=== PATIENT | male | born 1965 | race Caucasian/White ===

== ENCOUNTER 2021-02-28 07:36 | Outpatient (REF) | payer MEDICAID, SELFPAY ==
[2021-02-28 10:56] LABS: Alanine Aminotransferase 28 U/L (0-40); Albumin Level 3.9 g/dL (3.5-5.0); Alkaline Phosphatase 108 U/L (39-117); Anion Gap 14 (12-20); Aspartate Amino Transferase 24 U/L (5-37); Bilirubin Total 0.3 mg/dL (0.0-1.0); Blood Urea Nitrogen 16 mg/dL (9-16); Calcium 8.9 mg/dL (8.4-10.2); Carbon Dioxide 26 mmol/L (22-29); Chloride 102 mmol/L (96-108); Cholesterol 213 mg/dL; Estimated Glomerular Filt Rate > 60; Glucose Fasting 100 mg/dL (60-99); HDL Cholesterol 47 mg/dL; LDL Cholesterol Calculated 143 mg/dl; Potassium 4.7 mmol/L (3.3-5.1); Sodium 137 mmol/L (135-145); Total Protein 7.3 g/dL (6.5-8.0); Triglycerides 115 mg/dL
[2021-03-04 10:47] LABS: Testosterone, Total 485 ng/dL (250-1100)
== END 2021-02-28 07:37 | disposition home or self-care (01) ==
LOC: HO.10HDL 07:36
PROVIDERS: Visit Provider Internal Medicine
DX: E78.00 Pure hypercholesterolemia, unspecified (principal); I10 Essential (primary) hypertension; R53.83 Other fatigue
CPT/HCPCS: 36415; 80053; 80061; 84403

== ENCOUNTER 2021-11-12 14:16 | Outpatient (REF) | payer MEDICAID, SELFPAY ==
--- NOTE | ~2021-11-12 | XR_ITS ---
EXAMINATION: RIGHT CLAVICLE AND RIGHT SHOULDER. CLINICAL INFORMATION: Pain. COMPARISON: None TECHNIQUE: 2 views right clavicle and 4 views right shoulder. FINDINGS: Right clavicle: There is no visible fracture or bony abnormality. The soft tissues are normal. Right shoulder: There is mild reduction in the glenohumeral joint space with inferior glenoid spurring. No visible acute fracture or dislocation seen. The soft tissues are normal. XR/XR shoulder RT min 2V IMPRESSION: Unremarkable right shoulder exam. Unremarkable right clavicle.
--- NOTE | ~2021-11-12 | XR_ITS ---
EXAMINATION: RIGHT CLAVICLE AND RIGHT SHOULDER. CLINICAL INFORMATION: Pain. COMPARISON: None TECHNIQUE: 2 views right clavicle and 4 views right shoulder. FINDINGS: Right clavicle: There is no visible fracture or bony abnormality. The soft tissues are normal. Right shoulder: There is mild reduction in the glenohumeral joint space with inferior glenoid spurring. No visible acute fracture or dislocation seen. The soft tissues are normal. XR/XR clavicle RT IMPRESSION: Unremarkable right shoulder exam. Unremarkable right clavicle.
== END 2021-11-12 14:17 | disposition home or self-care (01) ==
LOC: HO.XRAY 14:16
PROVIDERS: PCP Internal Medicine; Visit Provider Internal Medicine
DX: M54.2 Cervicalgia (principal); M25.511 Pain in right shoulder
CPT/HCPCS: 73000; 73030

== ENCOUNTER 2024-11-13 11:05 | Emergency (ER) | payer MEDICAID, SELFPAY ==
--- NOTE | ~2024-11-13 | XR_ITS ---
CLINICAL HISTORY: fall, pain, unable bear weight 4 view left knee Comparison: None provided Findings: No fractures or dislocations. No significant arthritic change or erosions. No joint effusion. No radiopaque foreign body. IMPRESSION: 1. No acute findings. This document has been electronically signed by: Torey Girard MD on 11/13/2024 11:50:52
[2024-11-13 11:11] VITALS: BP 138/84; PULSE 68; RESP 19; TEMP 36.6; O2SAT 98; BMI 28.8
--- NOTE | 2024-11-13 11:11 | ED_ITS ---
HPI - Extremity Injury (Lower) General Chief Complaint: Extremity Injury, Lower Stated Complaint: Fall yesterday, Left knee injury Time Seen by Provider: 11/13/24 12:00 Source: patient Mode of arrival: wheelchair Limitations: no limitations History of Present Illness ED Provider: barby holguin np HPI Narrative: Patient is a 58 year male who presents emergency department for evaluation, reports that he fell off a skateboard yesterday sustained a twisting injury to the left knee with the resultant pain, inability to weightbear. Denies numbness tingling cold sensation to the extremity. Denies known prior injury to this extremity. Related Data Allergies Allergy/AdvReac Type Severity Reaction Status Date / Time No Known Allergies Allergy Verified 11/13/24 11:12 Review of Systems Review of Systems: Yes all other systems are reviewed and are negative [facility] Past Medical History Attestation statement: The following information was validated with the patient. Source: old records reviewed Social History Social History Advance Directives: No Advance Directives Information Provided: Yes Do you have a plan to hurt others: No Plan Physical Exam Vital Signs: Vital Signs: Last Vital Signs Temp 98 F 11/13/24 11:11 Pulse 68 11/13/24 11:11 Resp 19 11/13/24 11:11 BP 138/84 11/13/24 11:11 Pulse Ox 98 11/13/24 11:11 O2 Del Method Room Air 11/13/24 11:11 BMI result Body Mass Index 28.8 Appearance: Alert.?Oriented to person, place and time. No acute distress.?Normal affect. Eyes: Pupils equal, round and reactive to light.? ENT: Pharynx normal.?? Neck: Normal inspection.? Neck supple.?? CVS: Heart sounds normal. Normal heart rate and rhythm.? Pulses normal.?? Respiratory: No respiratory distress.? Lung sounds clear to auscultation bilaterally?? Abdomen: Soft and non-tender. Normoactive bowel sounds. Skin: Skin warm and dry.? Normal skin color.? Extremities: No lower extremity edema.? No calf ttp.? No joint effusion. No crepitus. Anterior and posterior drawer test negative. Valgus and varus stress test positive. 2+ DP/PT pulse. No obvious deformities Neuro: Moves all extremities spontaneously. Sensation intact bilaterally. . Ambulates with antalgic gait. Medical Decision Making Medical Decision Making [facility] Narrative: Patient is a 58-year-old male with past medical history of hypertension hypercholesterolemia presenting for evaluation of a left knee injury as per HPI. Had twisting injury from skateboard. Pain localized to the medial and lateral knee, Valgus and varus stress test are positive on examination, concern for potential ligamentous injury, meniscus tear. Lower suspicion for acute fracture/dislocation on physical examination, XR over was obtained, I do not appreciate any bone fragments that might favor an avulsion fracture. No effusio n. Quadriceps tendon is intact. No proximal tibial tenderness. Extremity is neurovascularly intact distally. He has been in the knee immobilizer and provided with crutches, recommendation for conservative treatment and outpatient follow-up with orthopedics. All questions answered. Stable for discharge Differential Diagnosis Differential Diagnoses: The differential diagnosis associated with the presentation includes (See narrative above) Independent Interpretation I performed an independent interpretation of an: Plain X-Ray (See narrative above) Radiology Impression Discussion of test interpretation with radiology: I have reviewed the radiologist's reading. Radiologist Impression: 4 view left knee Comparison: None provided Findings: No fractures or dislocations. No significant arthritic change or erosions. No joint effusion. No radiopaque foreign body. IMPRESSION: 1. No acute findings. Independent Historian Clinical information obtained from an independent historian. History obtained from or confirmed by: Spouse External Record Review External record reviewed: Outpatient record Prescription Management I considered prescription management with: Pain Medication Discharge Plan Discharge Clinical Impression: Internal derangement of knee Qualifiers: Laterality: left Qualified Code(s): M23.92 - Unspecified internal derangement of left knee Patient Disposition: Home, Self-Care Instructions: P.R.I.C.E. Treatment (ED), Knee Sprain (ED), Knee Immobilizer (ED), Crutch Instructions (ED) Additional Instructions: You can take ibuprofen 200 mg, 3 tablets (600mg) every 6-8 hours as needed for pain, in addition to Tylenol 500 mg, 2 tablets (1,000mg) every 4-6 hours as needed for pain, but not to exceed 3 doses daily (3,000mg).? Apply ice for 10-15 minutes 4-6 times daily. Use the knee immobilizer at all times in addition to the crutches, nonweightbearing until seen by orthopedics. Elevate the leg above the level of your chest. Contact the orthopedic office 1st thing tomorrow morning to arrange for an outpatient follow-up visit. Referrals: Mary Thornton MD [Primary Care Provider, Internal Medicine] [facility] [place] [facility] [Provider Group] Stand Alone Forms: Work/School Release Print Language: Nepalese
[2024-11-13 12:33] VITALS: BP 138/84; PULSE 68; RESP 19; TEMP 36.6; O2SAT 98
== END 2024-11-13 12:33 | disposition home or self-care (01) ==
PROVIDERS: Emergency Provider Emergency Medicine; PCP Internal Medicine
DX: M23.92 Unspecified internal derangement of left knee (principal); M25.562 Pain in left knee
CPT/HCPCS: 73564; 99282; 99283

== ENCOUNTER → 2024-11-13 11:12 | Outpatient (BNV) | payer MEDICAID, SELFPAY | PROVIDERS: Emergency Provider Emergency Medicine; PCP Internal Medicine; Visit Provider Radiology Diagnostic Radiology | DX: M25.562 Pain in left knee (principal) | CPT/HCPCS: 73564 ==

== ENCOUNTER 2024-12-07 09:54 | Outpatient (REF) | payer MEDICAID, SELFPAY ==
--- NOTE | ~2024-12-07 | XR_ITS ---
EXAMINATION: XR KNEE, LEFT CLINICAL INFORMATION: M25.562 - Pain in left knee COMPARISON: 11/13/2024. TECHNIQUE: AP view bilateral knees standing, lateral and patellofemoral views left knee. FINDINGS: Right Knee: No fracture, or focal bony abnormality. Normal alignment. Very mild medial compartment joint space narrowing. Normal soft tissues. Left Knee: No fracture, dislocation, or suspicious bone lesion. A very mild medial compartment joint space narrowing. Joint spaces otherwise preserved. Normal knee and patellar alignment. No evidence of joint effusion. Normal soft tissues. XR/XR knee LT 2V IMPRESSION: 1. No acute bony abnormalities of the left knee. No significant joint effusion. 2. Very mild bilateral knee medial compartment joint space narrowing. Electronically signed by: Grayson Hu MD 12/07/2024 12:17 PM EDT
== END 2024-12-07 09:55 | disposition home or self-care (01) ==
LOC: HO.HOSX 09:54
PROVIDERS: Visit Provider Physician Assistant
DX: S83.512A Sprain of anterior cruciate ligament of left knee, initial encounter (principal); X50.1XXA Overexertion from prolonged static or awkward postures, initial encounter; Y93.51 Activity, roller skating (inline) and skateboarding
CPT/HCPCS: 73560; 99212

== ENCOUNTER 2024-12-07 11:47 | Outpatient (AMB) | payer MEDICAID, SELFPAY ==
--- NOTE | 2024-12-07 12:00 | MHC.OFFVIS ---
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 Per ED note from 11/13/24 patient a fall from skateboard resulting in a twisting injury to the left knee with the resultant pain, inability to weight bear. [place] [facility] Today patient reports on and off pain, sometimes gives out throbbing pain.lateral medial and posterior aspect of knee. especially going down stairs. Hx of cortisone injection 2 years ago. Out of work since injury. He has been out of work since his injury. 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 He states he was fixing his daughter skateboard when he went to try it out and he fell and as he landed he twisted the knee. He states there was some immediate discomfort with weight-bearing along with swelling. Since the date of injury he has had ongoing instability in the knee where if he applies weight or goes up and downstairs he feels unstable. He is an active individual who plays sports, goes to the gym and would like to maintain his level of activity. [facility] Surgical History (Updated 12/07/24 @ 12:05 by BRIAN Aleman) History of back surgery Social History (Updated 12/07/24 @ 12:06 by BRIAN Aleman) Patient Tobacco Use Status: Never used Tobacco Current occupational status: employed Current occupation: [employer] Review of Systems Const All systems reviewed & are unremarkable except as noted in HPI and below Physical Exam Vital Signs: BMI result Body Mass Index 28.8 Const General: cooperative and no acute distress Orientation/consciousness: patient oriented x3 Resp Effort & Inspection: normal respiratory effort and able to speak in complete sentences Cardio Peripheral pulses: Peripheral pulses 2+ throughout Neuro General: patient oriented x3 Extrem Other: Left knee is normal to inspection with no joint effusion present he has full range of motion. Mild tenderness over the medial joint line. No pain with pivot shift. Slight laxity with anterior drawer when compared to contralateral side. Results Reviewed Results Reviewed: Assessment & Plan Assessment & Plan (1) Complete tear of anterior cruciate ligament of left knee: Code(s): S83.512A - Sprain of anterior cruciate ligament of left knee, initial encounter Category: Medical Plan: I explained to the patient the extent of his injury given his age often these are typically not repaired as patients are more sedentary however given his lifestyle and activity level he may benefit from an ACL reconstruction however in the setting of arthritis this can complicate things. While he does have some mild arthritis his primary concern is the instability and limitations in daily activities from his injury. I will discuss the case further with Dr. Watkins to decide the next step in his treatment. The patient does express understanding and will return for follow-up as planned. Orders: Orders XR knee LT 2V Today M25.562 - Pain in left knee Coding Level of Care Code New Pt Level 3 (07980) Complex EM visit Add On G2211 Diagnoses Complete tear of anterior cruciate ligament of left knee S83.512A
[2024-12-07 12:07] VITALS: BMI 28.8
== END 2024-12-07 13:12 | disposition home or self-care (01) ==
LOC: HO.HOS 11:47
PROVIDERS: PCP Internal Medicine; Visit Provider Physician Assistant
DX: S83.512A Sprain of anterior cruciate ligament of left knee, initial encounter (principal)
CPT/HCPCS: 99203

== ENCOUNTER → 2024-12-07 11:48 | Outpatient (BNV) | payer MEDICAID, SELFPAY | PROVIDERS: Visit Provider Radiology Diagnostic Radiology | DX: M17.12 Unilateral primary osteoarthritis, left knee (principal) | CPT/HCPCS: 73560 ==

== ENCOUNTER 2024-12-08 12:57 | Outpatient (AMB) | payer MEDICAID, SELFPAY ==
--- NOTE | 2024-12-08 13:10 | MHC.OFFVIS ---
Vital Signs 12/08/24 13:12 Height 5 ft 9 in Weight 195 lb BMI 28.8 Intake Visit Reasons: OV- discuss ACL tear Intake Note: Carlo is a 58 year old man who presents today to discuss his options status post right knee injury, DOI: 11/12/24. Allergies No Known Allergies Allergy (Verified 12/08/24 13:11) Medication List - Last Reconciled 12/08/24 by Nikunj Wagner PA-C lisinopril-hydrochlorothiazide 20-25 mg 1 tab PO DAILY rosuvastatin 40 mg PO DAILY HPI HPI OV- discuss ACL tear: Details: 58-year-old gentleman returns to the office today for left knee ACL tear to discuss surgical intervention. Patient continues to have instability in the knee and limitations with daily activities. [facility] Surgical History History of back surgery Social History Patient Tobacco Use Status: Never used Tobacco Current occupational status: employed Current occupation: [employer] Review of Systems Const All systems reviewed & are unremarkable except as noted in HPI and below Physical Exam Vital Signs: BMI result Body Mass Index 28.8 Const General: cooperative and no acute distress Orientation/consciousness: patient oriented x3 Resp Effort & Inspection: normal respiratory effort and able to speak in complete sentences Cardio Peripheral pulses: Peripheral pulses 2+ throughout Neuro General: patient oriented x3 Extrem Other: Left knee is normal to inspection with no joint effusion present he has full range of motion. Mild tenderness over the medial joint line. No pain with pivot shift. Slight laxity with anterior drawer when compared to contralateral side. Assessment & Plan Assessment & Plan (1) Complete tear of anterior cruciate ligament of left knee: Code(s): S83.512A - Sprain of anterior cruciate ligament of left knee, initial encounter Category: Medical Plan: We discussed the extent of his injury which would benefit from surgical intervention for optimal functioning. The patient does understand nonsurgical intervention would result in significantly limited function. Given the patient's activity level and desire to continue this, it would be recommended to pursue surgical intervention. We discussed the procedure in detail along with the risks benefits and alternatives. Risks including but not limited to infection, injury to surrounding nerves and tissue and bone, small and large vessels, stiffness,need for further surgery, DVT/PE along with intraoperative complications including but not limited to . We discussed postoperative recovery which includes a brace for 6 weeks, followed by PT for up to 3-6 months post op. We also explained being cautious with activities for up to 9-12 months to prevent risk of re-rupture. The patient does express understanding we would like to proceed with left knee acl reconstruction with autograft with Dr. Watkins. The patient was fit for an acl brace in the office today which he took home so he can attend PT with it and they can show him how to use the brace post op. PT order was placed for 1-2 visits of Prehab . All questions answered and the patient will be booked accordingly. Orders: Orders PT Evaluation and Treatment Today S83.512A - Sprain of anterior cruciate ligament of left knee, initial encounter Coding Level of Care Code Est Pt Level 4 (55489) Complex EM visit Add On G2211 Diagnoses Complete tear of anterior cruciate ligament of left knee S83.512A
[2024-12-08 13:12] VITALS: BMI 28.8
== END 2024-12-08 14:00 | disposition home or self-care (01) ==
LOC: HO.HOS 12:58
PROVIDERS: PCP Internal Medicine; Visit Provider Physician Assistant
DX: S83.512A Sprain of anterior cruciate ligament of left knee, initial encounter (principal)
CPT/HCPCS: 99214

== ENCOUNTER → 2024-12-08 12:57 | Outpatient (BNVA) | payer MEDICAID, SELFPAY | PROVIDERS: PCP Internal Medicine; Visit Provider Physician Assistant | DX: M25.362 Other instability, left knee (principal); S83.512A Sprain of anterior cruciate ligament of left knee, initial encounter | CPT/HCPCS: 99212 ==

== ENCOUNTER 2024-12-20 10:44 | Outpatient (RCR) | payer MEDICAID, SELFPAY | END 2025-01-06 09:02 | disposition home or self-care (01) | LOC: HO.PT 10:44 | PROVIDERS: PCP Internal Medicine; Visit Provider Physician Assistant | DX: S83.512D Sprain of anterior cruciate ligament of left knee, subsequent encounter (principal) | CPT/HCPCS: 97110; 97161 ==

== ENCOUNTER → 2024-12-28 06:25 | Day surgery (SDC) | payer MEDICAID, SELFPAY ==
[2024-12-21 12:22] VITALS: BMI 29.2
--- NOTE | 2024-12-21 12:54 | HO.ANESPROP2 ---
Documented by User: Kathleen Husain NP 12/21/24 12:56 HPI - Anesthesia Eval Consult details Narrative: 59yo M for Left ACL Allograft PMFSH Active Problems Active Problems: All Active Problems Complete tear of anterior cruciate ligament of left knee (Acute) Past Medical History Medical History Enlarged prostate Arthritis Elevated cholesterol HTN (hypertension) Surgical History Surgical History H/O colonoscopy History of back surgery Social History Social History Are you a primary vehicle care specialist to a significant other at home: No Do you presently have visiting nurse or other home services: No Patient Tobacco Use Status: Never used Tobacco Use of substances other than those prescribed or required for medical reasons: No Are you DNR?: No Advance Directives: No Advance Directives Information Provided: Yes Current occupational status: employed Current occupation: [employer] Allergies Allergy/AdvReac Type Severity Reaction Status Date / Time No Known Allergies Allergy Verified 12/29/24 06:06 Home Medications ?Medication ?Instructions ?Recorded ?Confirmed ?Last Taken ?Type lisinopril 20 1 tab PO QAM 12/07/24 12/29/24 Unknown History mg-hydrochlorothiazide 25 mg tablet rosuvastatin 40 mg tablet 40 mg PO BEDTIME 12/07/24 12/29/24 Unknown History cetirizine 10 mg tablet 10 mg PO DAILY PRN allergies 12/20/24 12/29/24 Unknown History ezetimibe 10 mg tablet 10 mg PO QAM 12/20/24 12/29/24 Unknown History naproxen 500 mg tablet 500 mg PO BID PRN Pain 12/20/24 12/29/24 12/19/24 History tamsulosin 0.4 mg capsule 0.4 mg PO QAM 12/20/24 12/29/24 Unknown History Exam Height,Weight and Vital Signs: Height 5 ft 9 in Weight 89.811 kg Pertinent Lab Results Pertinent Lab Results: CBC and BMP 08/2024 from outside facility WNL Assessment and Plan Assessment Anesthesia Assessment: Chart Reviewed Documented by User: Analilia Rollins MD 12/29/24 08:48 PMFSH Past Medical History Medical History Enlarged prostate Arthritis Elevated cholesterol HTN (hypertension) Family History Family history of problems with anesthesia: No Surgical History Surgical History H/O colonoscopy History of back surgery History of Problems with Anesthesia: No Social History Social History Are you a primary vehicle care specialist to a significant other at home: No Do you presently have visiting nurse or other home services: No Patient Tobacco Use Status: Never used Tobacco Use of substances other than those prescribed or required for medical reasons: No Are you DNR?: No Advance Directives: No Advance Directives Information Provided: Yes Current occupational status: employed Current occupation: [employer] Allergies Allergy/AdvReac Type Severity Reaction Status Date / Time No Known Allergies Allergy Verified 12/29/24 06:06 Home Medications ?Medication ?Instructions ?Recorded ?Confirmed ?Last Taken ?Type lisinopril 20 1 tab PO QAM 12/07/24 12/29/24 Unknown History mg-hydrochlorothiazide 25 mg tablet rosuvastatin 40 mg tablet 40 mg PO BEDTIME 12/07/24 12/29/24 Unknown History cetirizine 10 mg tablet 10 mg PO DAILY PRN allergies 12/20/24 12/29/24 Unknown History ezetimibe 10 mg tablet 10 mg PO QAM 12/20/24 12/29/24 Unknown History naproxen 500 mg tablet 500 mg PO BID PRN Pain 12/20/24 12/29/24 12/19/24 History tamsulosin 0.4 mg capsule 0.4 mg PO QAM 12/20/24 12/29/24 Unknown History Exam Airway Mallampati Class: II TM Dist: >3cm Neck ROM: Full Heart: rrr Lungs: cta Assessment and Plan Assessment Anesthesia Assessment: Anesthesia Plan Discussed Final Anesthetic Review Family History of Problems with Anesthesia: No History of Problems with Anesthesia: No NPO: Yes ASA Class: II Final Preanesthetic Review: No Changes in Pt Med Stat, Meds/Allgs Chart Reviewed, Consent Obtained/Reviewed and Anes Risks/Benef Reviewed Patient Risk: Low Procedure Risk: Intermediate Anesthetic Plan Anesthetic Plan: GA, Regional Block and Agree w/ Assess. and Plan Disposition: Standard PACU
== END | disposition home or self-care (01) ==
PROVIDERS: PCP Internal Medicine; Visit Provider Orthopaedic Surgery
DX: S83.512A Sprain of anterior cruciate ligament of left knee, initial encounter (principal); Z53.8 Procedure and treatment not carried out for other reasons; M19.90 Unspecified osteoarthritis, unspecified site; I10 Essential (primary) hypertension; E78.00 Pure hypercholesterolemia, unspecified; N40.0 Benign prostatic hyperplasia without lower urinary tract symptoms; Z79.1 Long term (current) use of non-steroidal anti-inflammatories (NSAID); Z79.899 Other long term (current) drug therapy; Z98.890 Other specified postprocedural states
CPT/HCPCS: J0665; J1100; J2004; J2250

== ENCOUNTER 2024-12-29 05:56 | Day surgery (SDC) | payer MEDICAID, SELFPAY ==
[2024-12-29] VITALS (10 sets, daily range): BP systolic 111–142; BP diastolic 64–81; PULSE 51–74; RESP 10–17; TEMP 36.2–36.9; O2SAT 96–100; BMI 29.7
[2024-12-29] MEDS: Lactated Ringers 1,000 ML 50 ML IVCONT (06:33)
--- NOTE | 2024-12-29 07:35 | MHC.SHP ---
Pre-Procedural Eval Section A - 24 Hr Update-Section A only Date of Service: 12/29/24 The patient is an INPATIENT: No Changes since office visit: No Cold of Flu in the past 2 weeks, No New Medical Problems, No Changes in Medication and No Patient answered all questions The patient has been examined within 24 hours of the surgical procedure. The History & Physical has been completed within 30 days and I have reviewed it.: Yes Section B - Complete if H&P > 30 days Chief Complaint: Sprain of anterior cruciate ligament of left knee, Allergies: Allergies Allergy/AdvReac Type Severity Reaction Status Date / Time No Known Allergies Allergy Verified 12/29/24 06:06 Plan I have reviewed the history and physical and performed a pertinent physical examination on my patient. No changes have occurred unless specified. Time Spent With Patient Time: Total time managing care of this patient today ____ minutes.
[2024-12-29] MEDS: oxyCODONE HCl Immed Release 5 MG TABLET PO (11:01)
--- NOTE | 2024-12-30 15:25 | PM.OP ---
Brief Operative Note Date of Service: 12/29/24 Pre-op diagnosis: Left ACL rupture Post-op diagnosis: same Procedure: Left ACL reconstruction with quadriceps tendon autogfraft Implants: [employer]: ACL endobutton with 12x35 tibial interference screw Surgeon: Jose Luis Watkins MD Anesthesia: GETA and regional Was an Outboard Technician used for this Procedure?: Yes Outboard Technician: Daksha Hall Estimated blood loss (mL): 20 Tourniquet time (min): 100 IV fluids (mL): 1,200 Pathology: none sent Condition: stable Disposition: PACU
--- NOTE | 2024-12-30 15:27 | P.OP_ITS ---
Operative Note Operative Note Date of Service: 12/29/24 Narrative: Date of Service: 12/29/24 Pre-op diagnosis: Left ACL rupture Post-op diagnosis: same Procedure: Left ACL reconstruction with quadriceps tendon autogfraft Implants: Prado [employer] Nephew: ACL endobutton with 12x35 tibial interference screw Surgeon: Jose Luis Watkins MD Anesthesia: GETA and regional Was an V/Stol Landing Signal Officer used for this Procedure?: Yes V/Stol Landing Signal Officer: Daksha Hall Estimated blood loss (mL): 20 Tourniquet time (min): 100 IV fluids (mL): 1,200 Pathology: none sent Condition: stable Disposition: PACU Procedure in detail: Patient was brought to the operating room placed supine on the arthroscopic table and prepped and draped in standard sterile fashion. A time-out was called to identify proper site proper procedure proper surgeon and IV antibiotics per weight were administered. Under anesthesia he had a + pivot shift. I began by exsanguinating the limb and insufflating tourniquet to 300 mm Hg. Then made a standard anterolateral stab incision. The knee was insufflated with water and 30 degree arthroscope was placed. There was grade 1 fibrillations of the patella but overall suprapatellar pouch and the gutters were clean. I descended into the medial compartment where I made my far medial portal under direct visualization. The medial meniscus was examined. There was no tearing. The root was intact and there were scaattered grade 1 changes of the MFC and medial tibial plateau. The lateral compartment was then examined. The meniscus was intact. The root was intact. There was some grade 1 changes of the far medial aspect of the lateral tibial plateau. The lateral femoral condyle was pristine. I then examined the notch where there was a + empty wall sign and an intact PCL. I then removed my instrumentation and turned my attention to the distal quad. A 6 cm incision was made over the proximal patella and distal quad. Full- thickness skin flaps were developed down to the quadriceps fascia. This was incised in the cross quadriceps was identified. A central 1 cm wide area was i dentified. A 60 mm tendinous graft with a 20 mm bony block was planned. A knife was used to make a 1 cm x 60 mm tendon graft from the central 3rd of the distal quadriceps tendon. Once the proximal most aspect of the graft was made I slowly dissected it off on the underlying fascia and capsule. I then used a small oscillating saw to create a 20 x 10 mm triangular bone block from the proximal patella. Small osteotomes were used to complete the cuts. The undersurface of the patella was not harmed. The graft was then removed and placed on the back table. The donor site was irrigated copiously and then a quad was closed with the fascial layer included using an 0 Vicryl. Skin was then closed with absorbable suture, skin glue and Steri-Strips. On the back table the graft was prepared. The bone block was rongeur down to fit through a 9 aperture and a small drill was used at the junction of the middle and distal 3rd of the bone block. The endo button was then threaded through this. The other end of the graft was prepared using a Krackow stitch and sized to fit through a 10. This was then placed in a moist towel and I returned to the knee arthroscopy. The camera was returned to the knee and the knee was insufflated with saline. I debrided the stump and acl footprint and performed a limited notchplasty. I then, through a far AM portal and a 7mm behind the back guide, drilled a k-wire through the LFC with the knee in hyper-flexion. I measured the tunnel as a 36 and then drilled a 28 mm tunnel with a 10 mm reamer. The final 8 mm was drilled iwth a 4.5 reamer. I then pulled a suture through the femoral tunnel and turned my attention to the tibia. I did examine the femoral tunnel and was satisfied with the posterior wall and its location low and medial at the anatomic footprint. I placed my tibial drill guide in 55 deg and, through a anteromedial inc just lateral to the tibial tubercle placed a k-wire into the notch exiting just medial to the anterior horn insertion of the lateral meniscus. I then over- reamed with an 11 reamer. I cleaned the tunnels up with a shaver. I then passed the autograft through the tibial tunnel and femoral tunnel and flipped the b utton. The bone block was eased into position with a probe. I cycled the knee about 10-15 cycles and then placed a tibial interference screw with the knee in hyper-extension while holding the graft taught. Once I was satisfied that the interference screw was buried I examined the ACL. The ACL was not pistoning nor impinging and there was a negative pivot shift. The graft was taut using a probe. I then removed all instrumentation and closed the arthroscopic incisions with nylon. The tibial incision was closed with absorbable suture, skin glue and Steri-Strips. Patient was then placed in sterile dressings and a hinged knee brace. She was then extubated brought recovery room stable condition. There were no known complications.
== END 2024-12-29 12:31 | disposition home or self-care (01) ==
LOC: HO.SSS 05:56
PROVIDERS: PCP Internal Medicine; Visit Provider Orthopaedic Surgery
PROC: (CPT 27428; principal; 2024-12-29 07:30)
DX: S83.512A Sprain of anterior cruciate ligament of left knee, initial encounter (principal); W17.89XA Other fall from one level to another, initial encounter; M23.52 Chronic instability of knee, left knee; Y93.51 Activity, roller skating (inline) and skateboarding; Y92.9 Unspecified place or not applicable; Y99.9 Unspecified external cause status; E78.00 Pure hypercholesterolemia, unspecified; I10 Essential (primary) hypertension; Z98.890 Other specified postprocedural states; Z79.899 Other long term (current) drug therapy
CPT/HCPCS: 29888; C1713; J0131; J0165; J0690; J1100; J1885; J2003; J2405; J2704; J3010

== ENCOUNTER → 2024-12-29 05:56 | Outpatient (BNV) | payer MEDICAID, SELFPAY | PROVIDERS: PCP Internal Medicine; Visit Provider Orthopaedic Surgery | DX: S83.512A Sprain of anterior cruciate ligament of left knee, initial encounter (principal) | CPT/HCPCS: 29888 ==

== ENCOUNTER 2025-01-05 10:31 | Outpatient (AMB) | payer OTHER, SELFPAY ==
--- NOTE | 2025-01-05 11:03 | A.OFFVIS_ITS ---
Intake Visit Reasons: PO LT ACL reconstruction 12/29/24 NE Intake Note: Carlo is a 59 year old male who presents today for a post operative appointment status post left ACL reconstruction done on 12/29/[address] Watkins. Patient reports he is having pain. He finds it very difficult to sleep with the ACL brace on at night. Allergies No Known Allergies Allergy (Verified 01/05/25 11:04) HPI HPI PO LT ACL reconstruction 12/29/24 NE: Details: Mr. Chao this is a 59-year-old male who presents to the office today status post left knee ACL reconstruction with quadriceps tendon autograft. He admits that he has not been wearing his ACL brace as it is uncomfortable. He is using a walker to assist with ambulation. He reports discomfort but was unable to take the oxycodone due to GI upset. A prescription for hydrocodone was sent to the pharmacy however the patient did not pick this up. He has his 1st physical therapy appointment scheduled for tomorrow. PFSH Medical History Enlarged prostate Arthritis Elevated cholesterol HTN (hypertension) Surgical History H/O colonoscopy History of back surgery Social History Are you a primary lawn care technician to a significant other at home: No Do you presently have visiting nurse or other home services: No Patient Tobacco Use Status: Never used Tobacco Current occupational status: employed Current occupation: [employer] Review of Systems Const All systems reviewed & are unremarkable except as noted in HPI and below Physical Exam Const General: cooperative, healthy appearing and no acute distress Resp Effort & Inspection: normal respiratory effort and able to speak in complete sentences Extrem Other: Left knee incision sites are clean dry and intact. No surrounding erythema or drainage. No signs of infection. Calf is supple and nontender. Able to dorsiflex and plantar flex. Sensation intact. Pedal pulse intact. Psych Appearance: grossly normal Mental Status: mental status grossly normal Attitude: cooperative Assessment & Plan Assessment & Plan (1) S/P arthroscopic reconstruction of ACL of left knee using quadriceps tendon autograft: Code(s): Z98.890 - Other specified postprocedural states; Z87.39 - Personal history of other diseases of the musculoskeletal system and connective tissue Category: Surgical Plan Mr. Chao this is a 59-year-old male who presents to the office today status post left knee ACL reconstruction with quadriceps tendon autograft. He admits that he has not been wearing his ACL brace as it is uncomfortable and also has unlocked the brace. He is using a walker to assist with ambulation. He reports discomfort but was unable to take the oxycodone due to GI upset. A prescription for hydrocodone was sent to the pharmacy however the patient did not pick this up. He has his 1st physical therapy appointment scheduled for tomorrow. While in the office today, sutures were removed and Steri-Strips were applied. The patient was placed back into the ACL brace locked in extension. In his an attempt to make the ACL brace more comfortable I have placed a stockinette over the right lower extremity as well as multiple Humphrey wraps to provide padding. I reinforced the importance of wearing the ACL brace and the potential for postoperative complications including ACL graft failure. Patient demonstrates understanding but is unclear if he will continue to follow these rec ommendations. ACL reconstruction with quadriceps tendon autograft protocol was faxed to the physical therapy office for his upcoming appointment tomorrow. He will follow up in [address] Watkins, sooner if needed. X-rays of the left knee which were obtained while in the office today and were reviewed by me, Daksha Hall PA-C, revealed appropriately placed Endobutton against the lateral femoral condyle. Orders: Orders XR knee LT 1V Today M25.569 - Pain in unspecified knee PT Evaluation and Treatment Today Z87.39 - Personal history of other diseases of the musculoskeletal system and connective tissue, Z98.890 - Other specified postprocedural states Coding Level of Care Code Global (93431) Diagnoses S/P arthroscopic reconstruction of ACL of left knee using quadriceps tendon autograft Z98.890; Z87.39
== END 2025-01-05 11:38 | disposition home or self-care (01) ==
LOC: HO.HOS 10:32
PROVIDERS: PCP Internal Medicine; Visit Provider Physician Assistant
DX: Z98.890 Other specified postprocedural states (principal); Z87.39 Personal history of other diseases of the musculoskeletal system and connective tissue
CPT/HCPCS: 99024

== ENCOUNTER → 2025-01-05 10:35 | Outpatient (BNV) | payer MEDICAID, SELFPAY | PROVIDERS: Visit Provider Radiology Diagnostic Radiology | DX: M25.562 Pain in left knee (principal) | CPT/HCPCS: 73560 ==

== ENCOUNTER 2025-01-05 11:21 | Outpatient (REF) | payer MEDICAID, SELFPAY ==
--- NOTE | ~2025-01-05 | XR_ITS ---
EXAMINATION: XR KNEE, LEFT CLINICAL INFORMATION: M25.569 - Pain in unspecified knee COMPARISON: 12/07/2024. TECHNIQUE: Solitary AP view of the left knee. FINDINGS: No fracture, dislocation, or suspicious bone lesion. There is normal alignment. There is been a prior ACL repair. Joint spaces are preserved. Normal-appearing soft tissues. XR/XR knee LT 1V IMPRESSION: Single AP view left knee demonstrating prior ACL repair. Examination is otherwise normal. Electronically signed by: Grayson Hu MD 01/05/2025 11:04 AM EDT
== END 2025-01-05 11:22 | disposition home or self-care (01) ==
LOC: HO.HOSX 11:21
PROVIDERS: Visit Provider Physician Assistant
DX: Z48.89 Encounter for other specified surgical aftercare (principal); M25.562 Pain in left knee; Z98.890 Other specified postprocedural states; Z87.39 Personal history of other diseases of the musculoskeletal system and connective tissue
CPT/HCPCS: 73560; 99212

== ENCOUNTER 2025-01-26 13:21 | Outpatient (AMB) | payer MEDICAID, SELFPAY ==
--- NOTE | 2025-01-26 13:47 | MHC.OFFVIS ---
Intake Visit Reasons: PO LT ACL reconstruction 12/29/24 NE-4 Wk Intake Note: Carlo is a 59 year old male who presents today for a post operative appointment about 4 weeks status post left ACL reconstruction done on 12/29/24. At his first post operative appointment he admitted to being non compliant with Bracing. He was provided with kenyetta wrap and stockinette to assist with bracing discomfort, and was informed of the potential complication of noncompliance with bracing. He continues to work with [facility]. Allergies No Known Allergies Allergy (Verified 01/05/25 11:04) HPI HPI PO LT ACL reconstruction 12/29/24 NE-4 Wk: Details: Carlo is a 59 year old male who presents today for a post operative appointment about 4 weeks status post left ACL reconstruction done on 12/29/24. At his first post operative appointment he admitted to being non compliant with Bracing. He was provided with kenyetta wrap and stockinette to assist with bracing discomfort, and was informed of the potential complication of noncompliance with bracing. He continues to work with [facility]. [facility] Medical History Enlarged prostate Arthritis Elevated cholesterol HTN (hypertension) Surgical History H/O colonoscopy History of back surgery Social History Are you a primary healthcare liaison to a significant other at home: No Do you presently have visiting nurse or other home services: No Patient Tobacco Use Status: Never used Tobacco Current occupational status: employed Current occupation: [employer] Physical Exam Extrem Other: inc c/d/i 0-130 deg motion 1- ant drawer/lachmans with firm endpoint Assessment & Plan Assessment & Plan (1) S/P arthroscopic reconstruction of ACL of left knee using quadriceps tendon autograft: Code(s): Z98.890 - Other specified postprocedural states; Z87.39 - Personal history of other diseases of the musculoskeletal system and connective tissue Category: Surgical Plan: Knee is stable. He is still weakn in his quad. He is demonstrating poor mechanics with gait. I recommend continuing PT. I emphasized the importance of activity modification and avoidance of cutting and the improtance of strengthening. He will see me back in 2 months. Continue bracewear. Coding Level of Care Code Global (61914) Diagnoses S/P arthroscopic reconstruction of ACL of left knee using quadriceps tendon autograft Z98.890; Z87.39
== END 2025-01-26 14:23 | disposition home or self-care (01) ==
LOC: HO.HOS 13:22
PROVIDERS: PCP Internal Medicine; Visit Provider Orthopaedic Surgery
DX: Z98.890 Other specified postprocedural states (principal); Z87.39 Personal history of other diseases of the musculoskeletal system and connective tissue
CPT/HCPCS: 99024

== ENCOUNTER → 2025-01-26 13:21 | Outpatient (BNVA) | payer MEDICAID, SELFPAY | PROVIDERS: PCP Internal Medicine; Visit Provider Orthopaedic Surgery | DX: Z87.39 Personal history of other diseases of the musculoskeletal system and connective tissue (principal); Z98.890 Other specified postprocedural states | CPT/HCPCS: 99212 ==

== ENCOUNTER 2025-03-30 09:36 | Outpatient (AMB) | payer MEDICAID, SELFPAY ==
--- NOTE | 2025-03-30 09:38 | MHC.OFFVIS ---
Vital Signs 03/30/25 09:39 Height 5 ft 9 in Weight 200 lb BMI 29.5 Intake Visit Reasons: PO LT ACL reconstruction 12/29/24 NE Intake Note: Carlo is a 59 year old male who presents today for a post operative appointment about 4 weeks status post left ACL reconstruction done on 12/29/24. At his last visit he still exhibited quad weakness and poor gait mechanics. He was referred for PT and instructed to continue PT. Patient reports that he is doing well, he continues to have some discomfort when kneeling. He has some instability that is felt while going down stairs or with some increased activity but he is not having pain. Allergies No Known Allergies Allergy (Verified 01/05/25 11:04) HPI HPI PO LT ACL reconstruction 12/29/24 NE: Details: Carlo is a 59 year old male who presents today for a post operative appointment about 4 weeks status post left ACL reconstruction done on 12/29/24. At his last visit he still exhibited quad weakness and poor gait mechanics. He was referred for PT and instructed to continue PT. Patient reports that he is doing well, he continues to have some discomfort when kneeling. He has some instability that is felt while going down stairs or with some increased activity but he is not having pain. HPI Comments Details: Interval History The patient is a 59-year-old male presenting for follow-up for post-operative rehabilitation after left ACL reconstruction. The patient reports feeling good overall, although not yet at 100% recovery. He has been participating in physical therapy and has recently completed the sessions. He is able to lift his leg straight up and hold it without difficulty, indicating good progress in strength and stability. Results [facility] Medical History Enlarged prostate Arthritis Elevated cholesterol HTN (hypertension) Surgical History H/O colonoscopy History of back surgery Social History Are you a primary hemodialysis patient care specialist to a significant other at home: No Do you presently have visiting nurse or other home services: No Patient Tobacco Use Status: Never used Tobacco Current occupational status: employed Current occupation: [employer] Physical Exam Exam Exam: Physical Exam - General Appearance: Well-developed, well-nourished male, in no acute distress. - Extremities: Incision site on the left knee appears well-healed. Full range of motion in the left knee. Negative Charmaine's test. No effusion noted. Stable to varus and valgus stress. Vital Signs: BMI result Body Mass Index 29.5 Assessment & Plan Assessment & Plan (1) S/P arthroscopic reconstruction of ACL of left knee using quadriceps tendon autograft: Code(s): Z98.890 - Other specified postprocedural states; Z87.39 - Personal history of other diseases of the musculoskeletal system and connective tissue Category: Surgical Plan Plan 1. Post-Operative Status Following Left Acl Reconstruction The patient is advised to continue with strengthening exercises, including riding a bike and lifting weights, focusing on the buttocks and leg muscles. He is instructed to avoid running, cutting, and pivoting activities to prevent strain on the graft. Follow-up is scheduled in three months to assess progress and potentially begin more dynamic activities, including onzr-cs-balm movements and twisting. Discussion Notes During the visit, the importance of being cautious with activities was emphasized to the patient, as the graft is still in the healing phase. The patient was informed that while the graft is strong, it requires time for the surrounding muscles to regain strength to prevent loosening and potential failure. The patient expressed understanding of the need to avoid high-risk activities such as running and pivoting. The plan to focus on strengthening exercises and return for follow-up in three months was agreed upon. Coding Level of Care Code Global (50698) Diagnoses S/P arthroscopic reconstruction of ACL of left knee using quadriceps tendon autograft Z98.890; Z87.39
[2025-03-30 09:39] VITALS: BMI 29.5
== END 2025-03-30 10:55 | disposition home or self-care (01) ==
LOC: HO.HOS 09:37
PROVIDERS: PCP Internal Medicine; Visit Provider Orthopaedic Surgery
DX: S83.512D Sprain of anterior cruciate ligament of left knee, subsequent encounter (principal); Z98.890 Other specified postprocedural states; Z87.39 Personal history of other diseases of the musculoskeletal system and connective tissue
CPT/HCPCS: 99213

== ENCOUNTER → 2025-03-30 09:36 | Outpatient (BNVA) | payer MEDICAID, SELFPAY | PROVIDERS: PCP Internal Medicine; Visit Provider Orthopaedic Surgery | DX: Z98.890 Other specified postprocedural states (principal); Z87.39 Personal history of other diseases of the musculoskeletal system and connective tissue | CPT/HCPCS: 99212 ==